=== PATIENT | female | born 1970 | race Two or more races ===

== ENCOUNTER 2024-08-27 06:53 | Emergency (ER) | payer OTHER ==
[~2024-08-27] VITALS: Ht 152.4 cm; Wt 58.6 kg
[2024-08-27] MEDS ORDERED: IBUP-1957 PO (07:11)
[2024-08-27] MEDS ORDERED: CEPH-570 PO (07:11)
[2024-08-27 07:18] VITALS: BP 152/71; TEMP 97; O2SAT 99
== END 2024-08-27 07:18 | disposition home or self-care (01) ==
LOC: ER 06:59
DX: L03.011 Cellulitis of right finger (principal); E11.9 Type 2 diabetes mellitus without complications; Z79.1 Long term (current) use of non-steroidal anti-inflammatories (NSAID)

== ENCOUNTER 2024-11-05 07:53 | Emergency (ER) | payer OTHER ==
[~2024-11-05] VITALS: Ht 152.4 cm; Wt 68.5 kg
[~2024-11-05 07:53] MED LIST: CEPH-570 PO; IBUP-1957 PO
[2024-11-05] MEDS ORDERED: IBUP-1955 PO (09:31)
[2024-11-05] MEDS ORDERED: LIDO30AD10 TP (09:31)
[2024-11-05] MEDS ORDERED: LIDOCAINE 5% (PATCH) 1 EA PATCH TP ONE (09:38)
[2024-11-05] MEDS ORDERED: KETOROLAC TROMETHAMINE 15 MG/ML VIAL ONE (09:38)
[2024-11-05] MEDS: KETOROLAC TROMETHAMINE 15 MG/ML VIAL IM ONE (09:40)
[2024-11-05] MEDS: LIDOCAINE 5% (PATCH) 1 EA PATCH TP STA (09:45)
[2024-11-05 09:53] VITALS: BP 106/68; TEMP 98.8; O2SAT 98
== END 2024-11-05 09:53 | disposition home or self-care (01) ==
LOC: ER 07:56
DX: S20.211A Contusion of right front wall of thorax, initial encounter (principal); S80.12XA Contusion of left lower leg, initial encounter; E11.9 Type 2 diabetes mellitus without complications; Z79.1 Long term (current) use of non-steroidal anti-inflammatories (NSAID); Z88.1 Allergy status to other antibiotic agents; W18.39XA Other fall on same level, initial encounter; Y93.89 Activity, other specified; Y92.89 Other specified places as the place of occurrence of the external cause; Y99.8 Other external cause status
CPT/HCPCS: 99284; 96372; 71100; 73590; J1885